=== PATIENT | female | born 1940 | race Caucasian/White ===

== ENCOUNTER → 2019-07-29 09:03 | Outpatient (BNVA) | payer MEDICARE, SELFPAY | PROVIDERS: Visit Provider Nurse Practitioner | DX: I25.10 Atherosclerotic heart disease of native coronary artery without angina pectoris (principal) | CPT/HCPCS: 80053; 80061; 81000 ==

== ENCOUNTER → 2019-12-21 09:19 | Outpatient (BNVA) | payer MEDICARE, SELFPAY | PROVIDERS: Visit Provider Nurse Practitioner Family | DX: J44.9 Chronic obstructive pulmonary disease, unspecified (principal); I10 Essential (primary) hypertension; I25.118 Atherosclerotic heart disease of native coronary artery with other forms of angina pectoris; I73.9 Peripheral vascular disease, unspecified; M79.2 Neuralgia and neuritis, unspecified; Z86.73 Personal history of transient ischemic attack (TIA), and cerebral infarction without residual deficits; H11.31 Conjunctival hemorrhage, right eye; I45.10 Unspecified right bundle-branch block; R07.9 Chest pain, unspecified; R73.9 Hyperglycemia, unspecified | CPT/HCPCS: 80053; 80061; 82550; 83036; 84443; 84484; 85025 ==

== ENCOUNTER → 2020-01-10 11:29 | Outpatient (BNVA) | payer MEDICARE, SELFPAY | PROVIDERS: Visit Provider Nurse Practitioner Family | DX: R07.9 Chest pain, unspecified (principal) | CPT/HCPCS: 80053; 84484; 85025 ==

== ENCOUNTER 2020-03-01 10:48 | Outpatient (CLI) | payer MEDICARE, SELFPAY ==
--- NOTE | 2020-03-01 11:00 | USCV_ITS ---
Cal Tolbert Age: 79 Gender: M : 1940 Exam Date: 03/01/2020 10:52 Ordering Phys: Jono Palmer MD ([email or web address]) Technologist: Jasmin Gutierrez [place] [facility] [place]ication: CHEST PAIN BP: 159 / 68 HR: 62 Rhythm: Sinus Technical Quality: Poor secondary to COPD MEASUREMENTS (Male / Female) Normal Values 2D ECHO LV Diastolic Diameter PLAX 4.3 cm 4.2 - 5.9 / 3.9 - 5.3 cm LV Systolic Diameter PLAX 3.5 cm LV Chamber Size 4.2 cm IVS Diastolic Thickness 1.5 cm 0.6 - 1.0 / 0.6 - 0.9 cm IVS Systolic Thickness 1.5 cm LVPW Diastolic Thickness 1.4 cm 0.6 - 1.0 / 0.6 - 0.9 cm LVPW Systolic Thickness 1.4 cm RV Chamber Size 2.7 cm LVOT Diameter 2.1 cm LV Ejection Fraction 2D Teich 38.4 % LV Ejection Fraction MOD 2C 56.1 % LV Ejection Fraction 2C AL 59.3 % LA Diameter 2.9 cm LA Width 2.9 cm LA Height 4.5 cm RA Width 3.2 cm RA Height 2.2 cm Aorta at Sinotubular Diameter 3.0 cm M-MODE LV Diastolic Diameter MM 5.3 cm 4.2 - 5.9 / 3.9 - 5.3 cm LV Systolic Diameter MM 3.1 cm LV Ejection Fraction MM Teich 71.5 % IVS Diastolic Thickness MM 1.5 cm 0.6 - 1.0 / 0.6 - 0.9 cm IVS Systolic Thickness MM 1.8 cm LVPW Diastolic Thickness MM 1.3 cm 0.6 - 1.0 / 0.6 - 0.9 cm LVPW Systolic Thickness MM 1.8 cm RV Diastolic Diameter MM 1.1 cm Aortic Annulus Diameter 3.3 cm LA Ao Ratio MM 1.1 MV E Point Septal Separation 1.5 cm DOPPLER AV Peak Velocity 134.0 cm/s LVOT Peak Velocity 93.0 cm/s AV Area Cont Eq vti 2.1 cm squared AV Area Cont Eq pk 2.3 cm squared MV Area PHT 2.0 cm squared Mitral E to A Ratio 0.7 MV E' Velocity 39.0 cm/s Mitral E to MV E' Ratio 11.6 Mitral E to LV E' Lateral Ratio 12.6 Mitral E to LV E' Septal Ratio 10.7 TR Peak Velocity 124.8 cm/s TR Peak Gradient 6.2 mmHg TR Mean Velocity 92.1 cm/s TR Mean Gradient 3.7 mmHg TR Velocity Time Integral 28.0 cm TV Peak E Velocity 25.0 cm/s Right Atrial Pressure 3.0 mmHg Pulmonary Artery Systolic Pressu 9.2 mmHg PV Peak Velocity 76.0 cm/s RV Acceleration Time 0.1 s RV Ejection Time 0.3 s RV AcT/ET 0.4 FINDINGS Left Ventricle Normal left ventricular size and systolic function, EF 65 %. Mild concentric left to the hypertrophy . Grade I/IV diastolic dysfunction (abnormal relaxation filling pattern), normal to mildly elevated filling pressures. Mild hypokinesia of the basal inferior cazares Right Ventricle Normal right ventricular size and systolic function. Right Atrium Normal right atrial size. Left Atrium Mildly increased left atrial size. Mitral Valve Thickened mitral valve. Moderate mitral annular calcification Aortic Valve Thickened aortic valve. Tricuspid Valve Tricuspid valve morphology could not be delineated well Pulmonic Valve Pulmonic valve not well visualized. Pericardium No pericardial effusion. Aorta Normal aortic annulus size. CONCLUSIONS Normal left ventricular size and systolic function, EF 65 %. Mild concentric left to the hypertrophy . Grade I/IV diastolic dysfunction (abnormal relaxation filling pattern), normal to mildly elevated filling pressures. Wall motion abnormality as mentioned above Thickened mitral valve. Moderate mitral annular calcification. Mildly increased left atrial size. Minimally thickened aortic valve No pericardial effusion. No previous study is available for comparison. Dr Jono Palmer MD [facility] (Electronically Signed) Final Date: 01 March 2020 16:39 S
== END 2020-03-01 10:49 | disposition home or self-care (01) ==
LOC: RAD 10:54
PROVIDERS: Visit Provider Internal Medicine Cardiovascular Disease
DX: R07.9 Chest pain, unspecified (principal); I08.0 Rheumatic disorders of both mitral and aortic valves
CPT/HCPCS: 93306

== ENCOUNTER 2020-03-10 08:22 | Outpatient (CLI) | payer MEDICARE, SELFPAY ==
--- NOTE | 2020-03-10 08:45 | USCV_ITS ---
Cal Tolbert Age: 79 Gender: M : 1940 Exam Date: 03/10/2020 09:01 Ordering Phys: Jono Palmer MD ([email or web address]) Technologist: Jasmin Gutierrez Exam Location: [facility] – [place] Indication: HISTORY OF BILAT GRAFTING Risk Factors: Smoker Previous Vascular Surgery: BILATERAL GRAFTS RIGHT LEFT BP: 150.0 / BP: 157.0/ 0 0 Waveform Velocity (cm/s) Velocity (cm/s) Waveform Biphasic 116.2 Iliac Prox Biphasic Iliac Mid 157.1 Biphasic 159.0 Iliac Distal Biphasic 136.3 SOCIAL SERVICE LIAISON Biphasic 92.6 SFA Prox 77.7 Biphasic Biphasic 114.7 SFA Mid 264.1 Biphasic Biphasic SFA Dist Biphasic 165.5 116.8 Biphasic 102.5 POP 95.7 Biphasic Biphasic 56.2 MANAGER BANQUET 74.6 Biphasic Monophasic 48.5 DPA 129.0 Biphasic 0.9 CHELSEY 0.9 FINDINGS RT MANAGER BANQUET 125 RT DPA 145 LT MANAGER BANQUET 145 LT DPA 120 Mild to moderate diffuse plaques in the right iliac and femoral artery. 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
--- NOTE | 2020-03-10 09:30 | USCV_ITS ---
Cal Tolbert Age: 79 Gender: M : 1940 Exam Date: 03/10/2020 08:35 Ordering Phys: Jono Palmer MD ([email or web address]) Technologist: Jasmin Gutierrez Exam Location: [facility] – [place] Indication: HISTORY OF CVA Risk Factors: SMOKER Previous Vascular Surgery: NONE PER PT Right Brachial BP: 150 / 64 Left Brachial BP: 157 / 70 Right Left Velocity (cm/s) Spectral Plaque Velocity (cm/s) Spectral Plaque Syst/Diast Broadening Syst/Diast Broadening 79.50/ 11.70 Prox CCA 74.90 / 21.80 49.80/ 10.70 Hetro Mid CCA 87.50 / 18.10 Homo 58.20/ 16.20 Distal CCA 97.20 / 16.70 Homo 166.20/13.20 Hetro Prox ICA 119.50/ 27.80 Hetro 76.80/ 18.60 Hetro Mid ICA 233.60/ 39.30 72.80/ 18.60 Distal ICA 207.40/ 54.60 69.50 Hetro ECA 132.00 Hetro 3.34 ICA/CCA 2.67 Antegrade Vertebral Antegrade 50.20/ 13.90 cm/s 22.90/ 10.00 cm/s Tri Subclavian Bi 116.0 190.6 0 0 FINDINGS Moderate to heavy heterogeneous plaques at the left bifurcation and internal carotid artery. Moderate to heavy heterogeneous plaques at the right bifurcation and proximal internal carotid artery Antegrade flow in the vertebral arteries bilaterally Normal Doppler flow velocities in the external carotid arteries bilaterally Intimal thickening and minimal plaques in the common carotid arteries bilaterally CONCLUSIONS Moderate to heavy heterogeneous plaques at the left bifurcation and internal carotid arterywith velocity elevation consistent with 50-79% stenosis. Moderate to heavy heterogeneous plaques at the right bifurcation and proximal internal carotid arterywith velocity elevation consistent with 50-79% stenosis. Intimal thickening and minimal plaques in the common carotid arteries bilaterally Consider CTA, to better evaluate the distal ICA and intracranial artery on the left side. No similar previous studies are available for comparison Dr Jono Palmer MD [facility] (Electronically Signed) Final Date: 11 March 2020 18:08 S
== END 2020-03-10 08:23 | disposition home or self-care (01) ==
LOC: RAD 08:27
PROVIDERS: Visit Provider Internal Medicine Cardiovascular Disease
DX: I73.9 Peripheral vascular disease, unspecified (principal); Z86.73 Personal history of transient ischemic attack (TIA), and cerebral infarction without residual deficits; I65.23 Occlusion and stenosis of bilateral carotid arteries
CPT/HCPCS: 93880; 93925

== ENCOUNTER 2020-03-30 10:01 | Outpatient (CLI) | payer MEDICARE, SELFPAY ==
--- NOTE | 2020-03-30 10:30 | CT_ITS ---
WS: [id number] CT scan of the arteries of the neck. Additional two-dimensional coronal and sagittal reconstruction w as performed. MIP images were also performed. 03/30/2020 Clinical Data: I65.21 - Occlusion and stenosis of right carotid artery Comparison: Bilateral carotid Doppler ultrasound, 03/10/2020. DLP: 968.[address] scans at [facility] use at least one of these dose optimization techniques: automat ed exposure control; mA and/or kV adjustment per patient size (includes targeted exams where dose is matched to clinical indication); or iterative reconstruction. Findings: There is calcification at the origins of both internal carotid arteries. The stenosis of the origin o f the right internal carotid artery is measured at 99%. The stenosis of the origin of the left regulatory affairs internship al carotid artery is 49%. The vertebral arteries are normal and equal in size. The intracranial circulation appears to be mary kate l. No aneurysms of the [place] can be seen. There are no occlusions or stenoses. There is calcification in the wall of the arch of the aorta. There are small cystic changes in the torrey ngs. There is a prominent density measuring 2.60 cm in the left apex. No lymphadenopathy is seen. The thyroid gland shows normal enhancement. Midline sternotomy sutures are present. The salivary glands are unremarkable. The larynx is symmetric. The oral cavity and parapharyngeal are as are unremarkable. The skull base shows no fractures or erosions. The mastoid air cells, internal a uditory canals, sella turcica, paranasal sinuses and intraorbital contents show only bilateral catar act replacements. There is moderate degenerative change of the cervical spine with multilevel degener ative disc disease. CT/CT angio neck 95792 Impression: 1. 99% stenosis of the right internal carotid artery. 2. 49% stenosis in the origin of the left internal carotid artery. 3. Chronic lung disease and prominent lesion in the left lung apex. Recommend C T chest.
[2020-03-30 11:22] LABS: Blood Urea Nitrogen 20 mg/dL (8-23)
[2020-03-30] MEDS: iodixanol 320 mg/mL 100mL Btl IV (11:34)
== END 2020-03-30 10:02 | disposition home or self-care (01) ==
LOC: RADWPI 10:05
PROVIDERS: PCP Nurse Practitioner Family; Visit Provider Internal Medicine Cardiovascular Disease
DX: I65.23 Occlusion and stenosis of bilateral carotid arteries (principal); J98.4 Other disorders of lung
CPT/HCPCS: 70498; 82565; 84520; Q9967

== ENCOUNTER → 2020-04-03 10:12 | Outpatient (BNVA) | payer MEDICARE, SELFPAY | PROVIDERS: PCP Nurse Practitioner Family; Visit Provider Nurse Practitioner Family | DX: I10 Essential (primary) hypertension (principal); I25.118 Atherosclerotic heart disease of native coronary artery with other forms of angina pectoris; J44.9 Chronic obstructive pulmonary disease, unspecified; I73.9 Peripheral vascular disease, unspecified; M79.2 Neuralgia and neuritis, unspecified; R07.9 Chest pain, unspecified | CPT/HCPCS: 80053; 80061; 84443; 85025 ==

== ENCOUNTER 2020-04-26 09:48 | Outpatient (CLI) | payer MEDICARE, SELFPAY ==
--- NOTE | 2020-04-27 09:35 | ECG_ITS ---
[facility] Test Date: 2020-04-27 Pat Name: Cal Tolbert Department: Room: Gender: Male Statement Clerk: : 1940 Requested By: Mike Avalos Order Number: [id number] Le MD: Nick Tolbert M.D. Measurements Intervals [place] Rate: 51 P: -24 [place]: 158 QRS: 151 QRSD: 146 T: 52 QT: 462 QTc: 430 Interpretive Statements SINUS BRADYCARDIA RIGHT BUNDLE BRANCH BLOCK [120+ ms QRS DURATION, UPRIGHT V1, 40+ ms S IN I/aVL/V4/V5/V6] LEFT POSTERIOR FASCICULAR BLOCK [QRS AXIS > 109, INFERIOR Q] No previous ECG available for comparison Electronically Signed On 04-27-2020 15:09:41 SANITATION TRUCK CLEANER by Nick Tolbert M.D. [id number]
[2020-04-27 09:50] VITALS: BMI 27.5
[2020-04-27 10:26] LABS: Add Urine Microscopic? NO
[2020-04-27 10:41] LABS: Basophils # 0.1 10^3/uL (0.0-0.1); Basophils % 0.9 %; Eosinophils # 0.3 10^3/uL (0.0-0.8); Eosinophils % 3.3 %; Hematocrit 39.3 % (42.0-52.0); Hemoglobin 12.4 g/dL (11.7-16.6); Lymphocytes # 2.9 10^3/uL (0.8-4.8); Lymphocytes % 32.9 %; Mean Corpuscular HGB Conc 31.6 g/dL (30.0-36.0); Mean Corpuscular Hemoglobin 28.9 pg (28.0-34.0); Mean Corpuscular Volume 91.6 fL (80-94); Monocytes # 0.9 10^3/uL (0.2-0.9); Monocytes % 10.5 %; Neutrophils # 4.55 10^3/uL (1.8-7.7); Neutrophils % 52.3 %; Nucleated Red Blood Cells % 0 %; Platelet Count 192 10^3/cmm (130-400); Red Blood Count 4.29 10^6/uL (4.1-5.3); Red Cell Distribution Width 13.2 % (12.1-15.1); White Blood Count 8.7 10^3/uL (4.0-10.0)
--- NOTE | 2020-04-27 10:46 | P.ANESASSM_ITS ---
Pre-Anesthetic Assessment Pre-Anesthetic Assessment: Height/Weight: Height 1.83 m Weight 92.079 kg Preop Diagnosis: Right Carotid artery stenosis Proposed Procedure: Operation Date: 05/01/20 07:00 Proposed Procedures p Carotid Endarterectomy 20235 I65.23(Right) - Mike Avalos MD Was Beta Rakesh taken within 24 hours: Yes Social: Social History: Tobacco and No alcohol Comment: heavy smoker Exam: Pre-Anes Outpt Exam: alert, oriented x 3 and regular rate & rhythm Additional Exam Findings (including area of procedure): BBS decreased, rhonchi Airway: Submandibular: WNL Cervical ROM: WNL MP: 2 Dentition: False Pulmonary: Pulmonary: COPD CV/HEM: CV/HEM: Angina (Stable), CAD, HTN and PVD : : None reported Hepatic: Hepatic: None reported GI: GI: None reported Metabolic: Metabolic: DM Musc/skel: Musc/skel: None reported Neuropsych: Neuropsych: CVA and Neuropathy Anesthetic Plan: ASA status: 3 Anesthesia: General Other: A.line Risk of > 500 ml blood loss (7ml/kg in children): No PFSH Anesthesia PFSH: Medical History Atypical chest pain CAD (coronary artery disease) Carotid stenosis COPD (chronic obstructive pulmonary disease) Essential (primary) hypertension History of CVA (cerebrovascular accident) History of left inguinal hernia Neuropathic pain PVD (peripheral vascular disease) Surgical History History of cataract extraction Bilateral History of coronary artery bypass graft x 3 History of femoral angiogram left Family History Other Hypertension Denies family history of Bleeding disorder Social History Smoking and tobacco status: current every day smoker Second hand smoke exposure: Yes Smoking risk assessment/counseling performed?: Yes Alcohol intake: never Desire information about alcohol rehabilitation?: No Counseling given: No Desire information about substance/drug rehabilitation?: No Counseling given: No Adopted: No Caregiver/support person: No Lives independently: Yes Household members: friend(s) Housing: House Marital status: Single Number of children: 5 service: Yes branch: [employer] Current occupational status: retired History of recent travel: No Current gender identity: Male Data Anesthesia CBC & Chem 7: 04/26/20 09:55 04/26/20 09:38 Other Labs: Laboratory Results - last 48 hr 04/26/20 04/26/20 09:55 09:55 WBC 8.7 RBC 4.29 Hgb 12.4 Hct 39.3 L MCV 91.6 MCH 28.9 MCHC 31.6 RDW 13.2 Plt Count 192 MPV 10.0 Neut % (Auto) 52.3 Lymph % (Auto) 32.9 [place] % (Auto) 10.5 Eos % (Auto) 3.3 Baso % (Auto) 0.9 Neut # (Auto) 4.55 Lymph # (Auto) 2.9 [place] # (Auto) 0.9 Eos # (Auto) 0.3 Baso # (Auto) 0.1 Nucleated RBC % (auto) 0 Nucleated RBCs # 0.0 PT Cancelled INR Cancelled Cardiac Studies: No Data to Display
[2020-04-27 10:59] LABS: Anion Gap 12.5 (5-19); Blood Urea Nitrogen 22 mg/dL (8-23); Calcium 9.1 mg/dL (8.5-10.5); Carbon Dioxide 27 mmol/L (22-29); Chloride 104 mmol/L (98-107); Glucose 105 mg/dL (65-115); Osmolality Calculated 292 mOsm/kg (285-295); Potassium 4.5 mmol/L (3.5-5.1); Sodium 139 mmol/L (136-145)
[2020-04-27 11:19] LABS: Bilirubin Urine Neg (Negative); Blood Urine Neg (Negative); Glucose Urine UA Norm (Normal); Ketones Urine Negative (Negative); Leukocyte Esterase Urine Negative (Negative); Nitrate Urine Negative (Negative); Protein Urine Neg (Negative); Urine Appearance Clear (CLEAR); Urine Color Straw (Yellow); Urobilinogen Urine Norm (Negative); pH Urine 7 (5-7)
[2020-04-27 11:29] LABS: INR 0.95 (0.8-1.2)
--- NOTE | 2020-05-01 06:53 | SUR.PREOP ---
Received text from charge nurse Jessica Alvarado that procedure was cancelled due to no open beds in the hospital.
== END 2020-04-26 09:49 | disposition home or self-care (01) ==
LOC: OPS 12-25 15:19
PROVIDERS: PCP Nurse Practitioner Family; Visit Provider Thoracic Surgery (Cardiothoracic Vascular Surgery)
DX: Z01.818 Encounter for other preprocedural examination (principal); I65.23 Occlusion and stenosis of bilateral carotid arteries; J44.9 Chronic obstructive pulmonary disease, unspecified; Z86.73 Personal history of transient ischemic attack (TIA), and cerebral infarction without residual deficits; E11.40 Type 2 diabetes mellitus with diabetic neuropathy, unspecified; I25.10 Atherosclerotic heart disease of native coronary artery without angina pectoris; I10 Essential (primary) hypertension; Z82.49 Family history of ischemic heart disease and other diseases of the circulatory system; F17.210 Nicotine dependence, cigarettes, uncomplicated; I45.10 Unspecified right bundle-branch block
CPT/HCPCS: 80048; 81003; 85025; 85610; 86850; 86900; 86920; 93005

== ENCOUNTER 2020-04-27 06:16 | Outpatient (CLI) | payer MEDICARE, SELFPAY ==
[2020-04-27 06:20] VITALS: BMI 27.1
--- NOTE | 2020-04-27 07:04 | ECG_ITS ---
[facility] Test Date: 2020-04-27 Pat Name: Cal Tolbert Department: Room: Gender: Male Information Technology Director: : 1940 Requested By: Jono Palmer Order Number: [id number] Rey MD: Dora Zamudio M.D. Interpretive Statements NAME OF STUDY: LEXISCAN SESTAMIBI STRESS TEST INDICATION: Shortness of Breath; Chest Pain PROCEDURE: At the baseline, the blood pressure was 178/85 mm Hg with a heart rate of 72 bpm. The electrocardiogram showed sinus rhythm, normal axis and RBBB. Non specific ST-T wave changes in inferolateral leads. ??? The Lexiscan was infused over a period of 20 seconds. A total of 0.4 milligrams of Lexiscan was infused. The stress phase was continued for a total of 5 minutes. Heart rate at the end of the stress phase was 72 bpm with a blood pressure of 167/72 mm Hg and oxygen saturation 97%. The EKG at the peak infusion revealed no significant ST-T wave changes. ??? Sestamibi was injected 20 seconds after the Lexiscan infusion. ??? Blood pressure at the end of the recovery phase was 169/81 mm Hg and oxygen saturation of 96% with a heart rate of 72 beats per minute. ??? CONCLUSION: 1. No significant EKG changes with the] LexiScan infusion. 2. No LexiScan induced chest pain or cardiac arrhythmia. 3. Normal blood pressure and heart rate response. 4. Sestamibi/sestamibi perfusion scan pending; see separate report. Electronically Signed On 04-27-2020 12:44:25 SENIOR JAVA WEB DEVELOPER by Dora Zamudio M.D. [id number]
--- NOTE | 2020-04-27 07:04 | NMCV_ITS ---
NM aaron perf SPECT r/s* [id number] Cal Tolbert Age: 79 Gender: M : 1940 Exam Date: 04/27/2020 07:39 Ordering Phys: Jono Palmer MD ([email or web address]) Technologist: MASON Melgar Exam Location: [facility] Indications: CHEST PAIN STRESS TEST [facility] IMAGE PROTOCOL Rest/Stress 1 Lexiscan Day Radiopharmaceutical Dose (mCi) Administration Site Administered by Rest: Tc-99m 10.9 IV MASON Soares Sestamibi Stress:Tc-99m 32.5 IV MASON Melgar Sestamichaim Rest: 27-Apr-2020 60 Discovery 630 Stress: 27-Apr-2020 30 Discovery 630 0.4mg Lexiscan. Images obtained in supine and prone position. SPECT RESULTS Technical Quality: Excellent Raw Data Analysis: Normal Image Corrections: No attenuation or motion correction applied Summed Stress Score: 14 Summed Rest Score: 9 Summed Difference Score: 5 PERFUSION FINDINGS Medium sized perfusion abnormality of moderate severity of basal to mid inferior and basal to mid inferolateral cazares on rest and stress images . FUNCTIONAL RESULTS (calculated via Gated SPECT) Stress Image LV EF (%): 69 Stress EDV (mL):115 TID: 0.78 Stress ESV (mL):36 FUNCTIONAL FINDINGS: The left ventricle is normal in size. Transient Ischemia Dilatation of 0.78. There is normal left ventricular systolic function. The left ventricular ejection fraction is normal with a value of 69%. There is normal left ventricular wall thickening. Normal end diastolic and end systolic function. IMPRESSIONS 1. Medium sized predominantly fixed perfusion abnormality of moderate severity of basal to mid inferior and basal to mid inferolateral cazares. 2. This likely represents old myocardial infarction in right coronary artery/circumflex artery territory. 3. Overall left ventricular systolic function is normal without regional wall motion abnormalities. 4. The left ventricular ejection fraction is normal with a value of 69%. 5. No significant coronary ischemia based on this study. Dora Zamudio MD (Electronically Signed) Final Date: 27 April 2020 12:25 S
[2020-04-27] MEDS: regadenoson 0.4 Mg/5 ml Syringe IVP (08:10)
[2020-04-27 08:22] VITALS: BP 169/81; PULSE 72
== END 2020-04-27 06:17 | disposition home or self-care (01) ==
LOC: CDL 06:20
PROVIDERS: PCP Nurse Practitioner Family; Visit Provider Internal Medicine Cardiovascular Disease
DX: R06.02 Shortness of breath (principal); R07.89 Other chest pain
CPT/HCPCS: 78452; 87635; 93017; A9500; J2785

== ENCOUNTER → 2020-05-03 10:54 | Outpatient (BNVA) | payer MEDICARE, SELFPAY | PROVIDERS: PCP Nurse Practitioner Family; Visit Provider Nurse Practitioner Family | DX: I65.21 Occlusion and stenosis of right carotid artery (principal) | CPT/HCPCS: 87635 ==

== ENCOUNTER 2020-05-08 11:59 | Inpatient (IN) | payer MEDICARE, SELFPAY ==
[2020-05-08] VITALS (14 sets, daily range): BP systolic 146–183; BP diastolic 61–87; PULSE 48–79; RESP 15–27; TEMP 36.4–36.6; O2SAT 96–98; BMI 27.5
[2020-05-08] MEDS: sodium chloride 0.9% 1,000 ML 30 ML IV (09:00)
[2020-05-08 09:07] LABS: Glucose Point of Care 103 mg/dL (70-110)
--- NOTE | 2020-05-08 09:13 | W.PM.OPSUD ---
Surgery/Procedure H&P Update DATE OF PROCEDURE: May 08, 2020 DATE H&P PERFORMED: 04/07/20 H&P UPDATE INFORMATION: I have reviewed H&P completed within last 30 days, I have examined patient prior to procedure and No changes to prior documentation PREOP DIAGNOSIS: Right Carotid artery stenosis PRIMARY INDICATION FOR PROCEDURE: High-grade, 99% right internal carotid artery stenosis PLANNED PROCEDURE: Operation Date: 05/08/20 10:55 Proposed Procedures p Carotid Endarterectomy 66018 I65.23(Right) - Mike Avalos MD
--- NOTE | 2020-05-08 10:22 | ANES.PROC ---
Anesthesia Procedures Procedure/Date: 05/08/20 Arterial Line: Time Out Performed: Yes Consent: requested by attending/covering physician, risks and benefits reviewed and patient agrees to proceed Size (Gauge): 20 Technique Used: direct puncture technique (after prep with chloraprep) Post-Procedure: dry sterile dressing placed Patient Tolerated Procedure: well and no complications Complications: none Site: right
[2020-05-08] MEDS: heparin, porcine 1,000 unit/mL INJ 10 mL 10000 UNIT IRRIGATION (10:38)
[2020-05-08] MEDS: vancomycin 1,000 MG SDV 1000 MG IRRIGATION (10:38)
--- NOTE | 2020-05-08 12:37 | P.OP_ITS ---
Operative Report Date of procedure: May 08, 2020 Pre-op Diagnosis: Right Carotid artery stenosis Post-op diagnosis: same Procedure Done: Right carotid endarterectomy with patch angioplasty Specimens removed/disposition: Right carotid artery plaque Surgeon: Mike Avalos Anesthesia: General Estimated blood loss (mL): 100 Condition: stable Disposition: ICU Brief History: 79-year-old gentleman referred to our service by Dr. Palmer due to a high-grade right ICA stenosis of greater than 99% as calculated by CTA during evaluations for carotid bruits and subsequent carotid duplex study revealing high-grade lesions. No neurologic symptoms. He has a long history of tobacco use since a very young age and continues to smoke unabated. Prior history includes coronary bypass grafting x3 and peripheral vascular disease. Recommendation for carotid endarterectomy was carefully discussed. Details and risk of the procedure were reviewed. He wished to proceed with plans for surgery. Surgery had been originally scheduled for last week but had to be delayed due to ICU bed availability during the Covid pandemic. Procedure: Mr. Tolbert was placed on the OR table and underwent general endotracheal anesthesia with a neurological monitoring endotracheal tube as well as placement of a right radial arterial line. Bihemispheric monitoring pads were placed as well as grounding and sensing pads for nerve conduction evaluation during neck dissection.The entire upper chest and right neck were sterilely prepped and draped. Incision was made along the anterior border of the sternomastoid muscle and carried down to the platysma with cautery. Dissection from this point forward was carried out utilizing Metzenbaum scissors and limited use of bipolar cautery. The internal jugular vein was dissected free and the facial vein was ligated, oversewn, and divided. Dissection was continued down through the ansa cervicalis with preservation of major branches. Minor branches were divided if required to allow for adequate exposure. Nerve conduction evaluation was performed throughout the dissection for protection of the recurrent nerve. We subsequently reached the common carotid artery. Dissection was then continued proximally to distally across the bifurcation. Vessel loops were placed around the common carotid artery, internal carotid artery, and external carotid artery. Distally, the base of the hypoglossal nerve could be identified and was protected. The internal carotid artery disease went fairly high and extended above the level of the mandibular angle. This did require some traction in this region, but great care was taken to minimize pressure to the hypoglossal nerve, which was protected. Care was taken during this dissection to avoid injury to the vagus nerve. The patient was then heparinized with 10,000 units. The systolic blood pressure was elevated to 160. Following this, in a rapid sequenced fashion, the distal internal carotid artery was clamped followed by clamping of the common carotid artery and external carotid artery. #11 scalpel blade was used to open the common carotid artery proximally. Lange scissors were then utilized to extend this arteriotomy across the distal common carotid artery and ulcerated very stenotic plaque and continue this further at the bifurcation across the calcific plaque in the internal carotid artery until we had reached normal intima. The internal carotid artery clamp was briefly flashed with evidence of brisk back bleeding, therefore we elected not to shunt. It should be noted that bi- hemispheric oximetry was recorded throughout the procedure. Next, a freer elevator was utilized to create a dissection plane the plaque from intima at the proximal portion of the arteriotomy. This was then divided with a #11 scalpel blade. This plaque was then further dissected along the intimal plane proximally to distally across the bifurcation. Utilizing an everting technique, plaque was removed from the external carotid artery with brisk flow. This plaque was then dissected free up the internal carotid artery to a feathered edge. Heparinized saline solution was utilized to remove any loose debris. Next, a Hemashield patch was brought into the field and sewn into position utilizing a running 6-0 Prolene suture, thereby completing our patch angioplasty. At the completion of the patch, the external carotid artery was opened followed by the common carotid artery and finally the internal carotid artery, thereby reestablishing cerebral flow. Areas of extravasation were repaired with 6-0 Prolene suture. After 5 minutes, heparin was reversed with protamine. Hemostasis was confirmed. The wound was irrigated with antibiotic solution. A small, flat, Aj-Hamilton drain was placed in the wound and connected to bulb suction. Sponge and needle count was correct. The wound was then closed in 2 layers of 3-0 Vicryl suture. Skin was reapproximated in a subcuticular manner with 4-0 Monocryl suture. A pressure dressing was then applied. He was awakened from anesthesia and spontaneous movement of all extremities as well as movement to command was noted. He was then transferred to the ICU in stable condition. I did rehabilitation counsellor with a family friend by phone at completion of the procedure. Mr. Tolbert will be monitored in the ICU for the next 24 hours.
[2020-05-08] MEDS: lactated ringers 1,000 ML 125 ML IV ×2 (13:11→20:42)
[2020-05-08] MEDS: HYDROcodone-acetaminophen 5-325 mg Tablet 1 TAB PO ×2 (14:55→20:38)
--- NOTE | 2020-05-08 15:26 | ANE.PACU2 ---
Inpatient post-anesthesia follow up: Airway intact: Yes Vital signs: Temperature 97.8 F Pulse Rate 67 Respiratory Rate 18 Blood Pressure Pulse Oximetry 98 Oxygen Delivery Me thod Room Air Oxygen Flow Rate 2 Fraction of Inspir ed Oxygen Hydration adequate: Yes Nausea and vomiting: No Pain level: 2 Mental status: Baseline
--- NOTE | 2020-05-08 17:54 | PC.NURSE ---
ART line removed. Pressure Held for 5 minutes. No signs of bleeding or hematoma. Wrapped site with gauze and coban.
[2020-05-08] MEDS: cetylpyridinium Lozenge 1 EACH MUCOUS MEM (17:55)
[2020-05-08] MEDS: ceFAZolin 1,000 MG in sodium chloride 0.9% (plus) 50 ML 100 MG IV (18:26)
[2020-05-09] VITALS (22 sets, daily range): BP systolic 143–180; BP diastolic 59–88; PULSE 39–80; RESP 10–20; O2SAT 93–97
[2020-05-09] MEDS: morphine 4 mg/mL SDV 1 mL 2 MG IVP (00:27)
[2020-05-09] MEDS: guaiFENesin 100 mg/5 mL UDC 10 mL 200 MG PO (00:40)
[2020-05-09] MEDS: ceFAZolin 1,000 MG in sodium chloride 0.9% (plus) 50 ML 100 MG IV (03:51)
--- NOTE | 2020-05-09 04:08 | PC.NURSE ---
Foly removed per order, 10 ml withdrawn from balloon, tip intact, tolerated well
[2020-05-09] MEDS: cetylpyridinium Lozenge 1 EACH MUCOUS MEM (04:41)
[2020-05-09] MEDS: lactated ringers 1,000 ML 125 ML IV (04:42)
--- NOTE | 2020-05-09 05:37 | PC.NURSE ---
Addendum entered by Crow Crowley RN 05/09/20 05:59: Give Losartan now Original Note: at bedside, approved giving morning BP now for HTN
[2020-05-09] MEDS: losartan 50 mg Tablet 100 MG PO (05:53)
[2020-05-09] MEDS: HYDROcodone-acetaminophen 5-325 mg Tablet 1 TAB PO (05:57)
--- NOTE | 2020-05-09 06:02 | PM.PN ---
Subjective Subjective: Interval history: Postop day #1 status post right carotid endarterectomy. Uneventful night. Neurologically intact. No phonation or swallowing difficulties. Low EUNICE drain output. EUNICE drain removed. Vitals/I&O/Wt Last Vital Signs Temp 97.6 F 05/08/20 21:00 Pulse 44 L 05/09/20 04:00 Resp 10 L 05/09/20 04:00 BP 180/81 05/09/20 05:53 Pulse Ox 97 05/09/20 04:00 05/08/20 05/08/20 05/09/20 14:59 22:59 06:59 Intake Total 1760 / 1760 1469.583 / 3229.583 1000 / 4229.583 Output Total 1000 / 1000 Balance 760 / 760 1469.583 / 2229.583 1000 / 3229.583 Weight last 48 hrs Weight 203 lb Physical Exam Neck/C-Spine: COMMON NORMALS: No carotid bruits (Neck incision clean and dry. EUNICE drain removed) Resp: COMMON NORMALS: normal respiratory effort, No use of accessory muscles and clear to auscultation bilaterally EFFORT & INSPECTION: Yes able to speak in complete sentences AUSCULTATION: clear to auscultation bilaterally Cardio: COMMON NORMALS: regular rate, regular rhythm, S1 normal heart sound present and No murmurs present (Cardio) RATE: regular rate RHYTHM: regular rhythm HEART SOUNDS: S1 normal heart sound present Neuro: COMMON NORMALS: no focal motor deficits and no sensory deficits noted OTHER: Tongue is midline with protrusion. Voice quality normal. A&P Assessment and plan (1) S/P carotid endarterectomy: Postop day #1. Doing well. Neurologically intact. EUNICE drain removed. Incision clean and dry. Plan: Discharge to home. Follow-up in clinic in 1 week. Status: Acute Attestations Medical Necessity Statement*: Status post right carotid endarterectomy Time Spent in Patient Care: 16 - 35 minutes Procedures Arterial Line Size (Gauge): 20 Coding Level of Care Code Acute Crystal Grinder for Chg Fwd Diagnoses S/P carotid endarterectomy Z98.890
--- NOTE | 2020-05-09 06:08 | P.DS_ITS ---
Discharge Providers Date of Admission: 05/08/20 11:59 Date of Discharge: May 09, 2020 Attending Provider at Admission: Mike Avalos MD Attending Provider at Discharge: Mike Avalos MD Primary Care Provider: TREVON Bob Diagnoses at Discharge Discharge Diagnosis (1) S/P carotid endarterectomy: Status: Acute Reason for Visit Reason for Visit: carotid endarterectomy Hospital Course Hospital Course Mr. Tolbert 79-year-old gentleman with a very long history of tobacco use and prior cardiac surgery who is been followed by Dr. Palmer. Evaluations included carotid duplex revealing high velocities and subsequent CTA revealing a high- grade right ICA stenosis. He was evaluated in my clinic as an outpatient and electively admitted for planned endarterectomy. Right carotid endarterectomy was performed yesterday. Postoperatively he has been neurologically intact. He has been convalescing in the ICU with stable vital signs. No swallowing or voice quality concerns. Low EUNICE drain output. EUNICE drain was discontinued this morning. Incision clean and dry. He will be discharged home today in stable condition. He will follow-up in our clinic in 1 week. Physical Exam Neck/C-Spine: COMMON NORMALS: full ROM and No carotid bruits OTHER: Right neck incision clean and dry. Resp: COMMON NORMALS: normal respiratory effort, No use of accessory muscles and clear to auscultation bilaterally AUSCULTATION: clear to auscultation bilaterally Cardio: COMMON NORMALS: regular rate, regular rhythm, S1 normal heart sound present and No murmurs present (Cardio) RATE: regular rate RHYTHM: regular rhythm Extremity: COMMON NORMALS: no clubbing, cyanosis or edema Neuro: COMMON NORMALS: no focal motor deficits and no sensory deficits noted Discharge Data Data Completed and Pending: Pending at discharge Category Date Time Status PRBC [Leukocyte R educed RBC] Routin e Lab 05/08/20 08:57 Results Type and Screen R outine Lab 05/08/20 08:57 Results Pathology: Surgic al [PTH] Routine Pth 05/08/20 11:49 Ordered Labs from last 24 hours 05/08/20 05/08/20 09:01 08:57 POC Glucose 103 Blood Type A Positive Rho(D) Type Positive Antibody Screen Negative Crossmatch See Detail Vitals: Last Vital Signs Temp 97.6 F 05/08/20 21:00 Pulse 56 L 05/09/20 06:00 Resp 15 05/09/20 06:00 BP 180/81 05/09/20 06:00 Pulse Ox 97 05/09/20 06:00 Discharge Plan Discharge Patient Disposition: Home Condition: Stable Prescriptions: New hydrocodone-acetaminophen 5-325 mg tablet 1 tab PO Q6H PRN (Reason: pain) Qty: 14 RF: 0 Continued carvedilol 12.5 mg tablet 12.5 mg PO BID 30 Days Qty: 60 RF: 5 isosorbide mononitrate 60 mg tablet extended release 24 hr 60 mg PO DAILY 30 Days Qty: 30 RF: 3 aspirin [Adult Low Dose Aspirin] 81 mg tablet,delayed release (DR/EC) 81 mg PO DAILY RF: 0 simvastatin [Zocor] 40 mg tablet 40 mg PO DAILY Qty: 90 RF: 1 olmesartan [Benicar] 40 mg tablet 40 mg PO DAILY Qty: 90 RF: 1 nitroglycerin 0.4 mg tablet, sublingual 0.4 mg SUBLINGUAL Q5M PRN (Reason: chest pain) Qty: 25 RF: 1 clopidogrel [Plavix] 75 mg tablet 75 mg PO DAILY Qty: 90 RF: 1 budesonide-formoterol [Symbicort] 160-4.5 mcg/actuation HFA aerosol inhaler 2 puff INHALATION BID 90 Days Qty: 3 RF: 1 Discharge Orders: Discharge Order (Routine); Ordered 05/09/20 Ordered By: Mike Avalos Referrals: Mike Avalos MD [Physician] - 1 week Discharge Diet: Usual diet Discharge Activity: Limit activity as instructed Activity Restrictions/Additional Instructions: No heavy lifting x1 week May remove bandage later today or tomorrow. May shower daily beginning tomorrow Report any redness, swelling, or drainage from incision Report any visual problems, swallowing difficulties, voice quality changes, or weakness Resume all home medications Discharge Attestations Time Spent in Discharge Care*: less than 30 min Specific Discharge Activities: educating patient, discussing with marito granados/social workers/dc planners, documenting/other paperwork and evaluating patient/reviewing data Time Spent in Smoking Cessation: 3 to 10 minutes Status at Discharge: Cognitive status at discharge: cognitively intact , Behavioral status at discharge: cooperative , Functional status at discharge: independent ambulation Overall status at discharge: patient is progressing back to baseline Quality Metrics Clinical Quality Measures During this hospital stay, did patient experience: None Coding Level of Care Code Acute Elevator Troubleshooter for Chg Fwd Diagnoses S/P carotid endarterectomy Z98.890
[2020-05-09] MEDS: atorvastatin 40 mg Tablet 20 MG PO (08:34)
[2020-05-09] MEDS: isosorbide mononitrate ER 60 mg Tablet PO (08:34)
[2020-05-09] MEDS: pantoprazole DR 40 mg Tablet PO (08:34)
[2020-05-09] MEDS: aspirin 81 mg EC Tablet PO (08:34)
--- NOTE | 2020-05-09 11:54 | PC.NURSE ---
all discharge instructions gone over with pt. questions answered. Scripts sent to [facility]. Taken to personal vehicle via wheel chair.
== END 2020-05-09 11:56 | disposition home or self-care (01) | DRG 39 ==
LOC: ICU 12:00
PROVIDERS: Admitting Provider Thoracic Surgery (Cardiothoracic Vascular Surgery); PCP Nurse Practitioner Family; Visit Provider Thoracic Surgery (Cardiothoracic Vascular Surgery)
PROC: 03CK0ZZ Extirpation of Matter from Right Internal Carotid Artery, Open Approach (ICD-10-PCS; CPT 35301; principal; 2020-05-08 10:45)
DX: I65.21 Occlusion and stenosis of right carotid artery (principal); F17.210 Nicotine dependence, cigarettes, uncomplicated; I25.10 Atherosclerotic heart disease of native coronary artery without angina pectoris; Z95.1 Presence of aortocoronary bypass graft; J44.9 Chronic obstructive pulmonary disease, unspecified; I10 Essential (primary) hypertension; Z86.73 Personal history of transient ischemic attack (TIA), and cerebral infarction without residual deficits; I73.9 Peripheral vascular disease, unspecified; G62.9 Polyneuropathy, unspecified; Z79.82 Long term (current) use of aspirin; Z79.02 Long term (current) use of antithrombotics/antiplatelets
CPT/HCPCS: 12345; 36415; 36416; 51702; 82962; 86850; 86900; 86920; 88304; 94640; J0360; J0690; J1100; J1644; J2270; J2370; J2405; J2704; J2720; J3010; J3370; J3490; J7030

== ENCOUNTER 2020-05-10 02:18 | Emergency (ER) | payer MEDICARE, SELFPAY ==
[2020-05-10] VITALS (7 sets, daily range): BP systolic 154–199; BP diastolic 72–103; PULSE 66–90; RESP 16–26; TEMP 36.8; O2SAT 90–95; BMI 27.5
--- NOTE | 2020-05-10 02:25 | ECG_ITS ---
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 Measurements Intervals [place] Rate: 81 P: 60 SC: 180 QRS: 110 QRSD: 149 T: 45 QT: 394 QTc: 460 Interpretive Statements SINUS RHYTHM RIGHT BUNDLE BRANCH BLOCK [120+ ms QRS DURATION, UPRIGHT V1, 40+ ms S IN I/aVL/V4/V5/V6] LEFT POSTERIOR FASCICULAR BLOCK [QRS AXIS > 109, INFERIOR Q] Compared to ECG 04/27/2020 10:34:33 Sinus bradycardia no longer present Electronically Signed On 05-10-2020 19:19:56 DONOR SERVICES TEAM LEADER by Dora Zamudio M.D. [email or web address] - [employer] Tracking/store/NU/[id number]/[email or web address]/[id number].pd berenice
--- NOTE | 2020-05-10 02:25 | XR_ITS ---
WS: [id number] Portable AP upright chest, 05/10/2020 Clinical Data: cp Comparison: None. Findings: No nodules, masses or effusions are seen. The heart is normal. The pulmonary vascularity is not increased. No pneumonia or pneumothorax is seen. The aortic arch and descending aorta show calci fication and tortuosity. There are midline sternotomy sutures and numerous mediastinal clips present. The diaphragms are flattened. XR/XR chest 1V portable [id number] Impression: Atherosclerosis and hyperinflation.
--- NOTE | 2020-05-10 02:26 | ED_ITS ---
HPI - Chest Pain General: Chief Complaint: Chest Pain Stated Complaint: CP Time Seen by Provider: 05/10/20 02:19 Source: patient and EMS Mode of arrival: EMS Limitations: no limitations History of Present Illness: HPI narrative: 79-year-old male recently had a carotid enterectomy and left the hospital yesterday. States tonight he has been having high blood pressure around 200 systolic. He states he is having some chest pain with high blood pressure. He states it is a sharp pain. He denies any vomiting or diarrhea. Denies any shortness of breath. He denies any pain in his carotid endarterectomy site. Associated symptoms: Deny abdominal pain, dyspnea, fever(s), nausea or vomiting Review of Systems Const: Denies: fever(s), chills, body aches or change in appetite Eyes: Denies: blurry vision or eye discomfort ENMT: Denies: throat pain or dental pain Card: Reports: chest pain Resp: Denies: dyspnea GI: Denies: abdominal pain, nausea, vomiting or diarrhea : Denies: dysuria Musc: Denies: neck pain or back pain Skin/Breast: Denies: rash Neuro: Denies: headache(s) Psych: Denies: depression David/Lymph: Denies: easy bruising All/Imm: Denies: urticaria PFSH ED PFSH: Medical History (Updated 05/10/20 @ 04:58 by Cheli Osman MD) Atypical chest pain CAD (coronary artery disease) Carotid stenosis COPD (chronic obstructive pulmonary disease) Essential (primary) hypertension History of CVA (cerebrovascular accident) History of left inguinal hernia Neuropathic pain PVD (peripheral vascular disease) Surgical History (Updated 05/09/20 @ 06:03 by Mike Avalos MD) History of cataract extraction Bilateral History of coronary artery bypass graft x 3 History of femoral angiogram left Family History Other Hypertension Denies family history of Bleeding disorder Social History Smoking and tobacco status: current every day smoker Second hand smoke exposure: Yes Smoking risk assessment/counseling performed?: Yes Alcohol intake: never Desire information about alcohol rehabilitation?: No Counseling given: No Desire information about substance/drug rehabilitation?: No Counseling given: No Adopted: No Caregiver/support person: No Lives independently: Yes Household members: friend(s) Housing: House Marital status: Single Number of children: 5 service: Yes branch: [employer] Current occupational status: retired History of recent travel: No Current gender identity: Male Physical Exam Const: COMMON NORMALS: no acute distress, patient oriented x3 and healthy appearing HENMT: COMMON NORMALS: normocephalic and atraumatic HEAD & SCALP: normocephalic and atraumatic Eye: COMMON NORMALS: Equal, round and reactive pupils present and EOMs intact bilaterally PUPIL: Yes Equal, round and reactive pupils present Neck/C-Spine: COMMON NORMALS: full ROM and supple Chest: COMMONS NORMALS: normal inspection of the chest and normal palpation of entire chest wall Resp: COMMON NORMALS: normal respiratory effort, No retractions and No use of accessory muscles AUSCULTATION: wheezes Cardio: COMMON NORMALS: regular rate, regular rhythm and No murmurs present (Cardio) RATE: regular rate RHYTHM: regular rhythm GI: COMMON NORMALS: Normal to inspection, nondistended, normoactive bowel sounds present, Soft to palpation, non-tender and no masses PALPATION: Yes Soft to palpation Extremity: COMMON NORMALS: normal to inspection and full ROM Neuro: COMMON NORMALS: patient oriented x3, moves all extremities and no focal motor deficits Psych: COMMON NORMALS: mental status grossly normal, Normal thought process present and cooperative THOUGHT PROCESS: Normal thought process present Skin: COMMON NORMALS: no rashes or lesions noted and no wounds GENERAL SKIN EXAM: no rashes or lesions noted Course Vital Signs: Vital signs: Vital Signs Temperature 98.2 F 05/10/20 02:22 Pulse Rate 79 05/10/20 05:12 Respiratory Rate 16 05/10/20 05:12 Blood Pressure 162/77 05/10/20 05:12 Pulse Oximetry 93 05/10/20 05:12 MDM - Chest Pain MDM Narrative: Medical decision making narrative: Patient presents with chest pain along with hypertension. His pain is atypical in nature I do not believe it is coronary nature. His initial repeat troponins were negative. He has had a recent stress test as well. He has no signs of pulmonary embolism. He has no signs of pneumonia. He feels much improved after pain meds and a breathing treatment. He is to follow-up with his carotid enterectomy as scheduled and return if worsening. He understands and agrees to the plan. Lab Data: Labs: Lab Results 05/10/20 05/10/20 05/10/20 Range/Units 02:30 02:30 02:30 WBC 16.2 H (4.0-10.0) 10^3/ uL RBC 4.00 L (4.1-5.3) 10^6/u L Hgb 11.5 L (11.7-16.6) g/dL Hct 37.1 L (42.0-52.0) % MCV 92.8 (80-94) fL MCH 28.8 (28.0-34.0) pg MCHC 31.0 (30.0-36.0) g/dL RDW 13.5 (12.1-15.1) % Plt Count 180 (130-400) 10^3/c mm MPV 10.0 (7.4-10.4) fL Neut % (Auto) 69.0 % Lymph % (Auto) 19.6 % Waldo % (Auto) 10.3 % Eos % (Auto) 0.6 % Baso % (Auto) 0.2 % Neut # (Auto) 11.17 H (1.8-7.7) 10^3/u L Lymph # (Auto) 3.2 (0.8-4.8) 10^3/u L Waldo # (Auto) 1.7 H (0.2-0.9) 10^3/u L Eos # (Auto) 0.1 (0.0-0.8) 10^3/u L Baso # (Auto) 0.0 (0.0-0.1) 10^3/u L Nucleated RBC % (a uto) 0 % Nucleated RBCs # 0.0 /100WBC PT 13.50 (12.1-14.9) SECO NDS INR 1.00 (0.8-1.2) Sodium 140 (136-145) mmol/L Potassium 4.5 (3.5-5.1) mmol/L Chloride 106 (98-107) mmol/L Carbon Dioxide 24 (22-29) mmol/L Anion Gap 14.5 (5-19) BUN 21 (8-23) mg/dL Creatinine 1.2 (0.7-1.2) mg/dL GFR Calculation Not Reportable Glucose 133 H (65-115) mg/dL Calculated Osmolal ity 295 (285-295) mOsm/k g Calcium 9.0 (8.5-10.5) mg/dL Total Bilirubin 0.2 (0.15-1.2) mg/dL AST 20 (0-40) U/L ALT 11 (0-41) U/L Alkaline Phosphata se 73 (40-130) IU/L Troponin T Baselin e (0-15) ng/L Troponin T 120 Min venetie (0-15) ng/L Delta Troponin T (0-10) ABS# Total Protein 6.1 L (6.6-8.7) g/dL Albumin 3.9 (3.5-5.2) g/dL Globulin 2.2 (1.3-4.6) g/dL 05/10/20 05/10/20 Range/Units 02:30 04:35 WBC (4.0-10.0) 10^3/ uL RBC (4.1-5.3) 10^6/u L Hgb (11.7-16.6) g/dL Hct (42.0-52.0) % MCV (80-94) fL MCH (28.0-34.0) pg MCHC (30.0-36.0) g/dL RDW (12.1-15.1) % Plt Count (130-400) 10^3/c mm MPV (7.4-10.4) fL Neut % (Auto) % Lymph % (Auto) % Waldo % (Auto) % Eos % (Auto) % Baso % (Auto) % Neut # (Auto) (1.8-7.7) 10^3/u L Lymph # (Auto) (0.8-4.8) 10^3/u L Waldo # (Auto) (0.2-0.9) 10^3/u L Eos # (Auto) (0.0-0.8) 10^3/u L Baso # (Auto) (0.0-0.1) 10^3/u L Nucleated RBC % (a uto) % Nucleated RBCs # /100WBC PT (12.1-14.9) SECO NDS INR (0.8-1.2) Sodium (136-145) mmol/L Potassium (3.5-5.1) mmol/L Chloride (98-107) mmol/L Carbon Dioxide (22-29) mmol/L Anion Gap (5-19) BUN (8-23) mg/dL Creatinine (0.7-1.2) mg/dL GFR Calculation Glucose (65-115) mg/dL Calculated Osmolal ity (285-295) mOsm/k g Calcium (8.5-10.5) mg/dL Total Bilirubin (0.15-1.2) mg/dL AST (0-40) U/L ALT (0-41) U/L Alkaline Phosphata se (40-130) IU/L Troponin T Baselin e 9 (0-15) ng/L Troponin T 120 Min venetie 16.72 H (0-15) ng/L Delta Troponin T 7.72 (0-10) ABS# Total Protein (6.6-8.7) g/dL Albumin (3.5-5.2) g/dL Globulin (1.3-4.6) g/dL EKG Data^: EKG 1: Attestation: I personally reviewed and interpreted this EKG as follows: EKG interpretation date: 05/10/20 EKG interpretation time: 02:22 Interpretation: nsr hr [address] or t wave abnormalities qrs 149 qtc 432 Discharge Plan Discharge Patient Disposition: Home Clinical Impression: Chest pain Qualifiers: Chest pain type: unspecified Qualified Code(s): R07.9 - Chest pain, unspecified Hypertension Qualifiers: Hypertension type: unspecified Qualified Code(s): I10 - Essential (primary) hypertension Condition: Stable Prescriptions: Changed carvedilol 12.5 mg tablet 25 mg PO BID 30 Days Qty: 60 RF: 5 No Action isosorbide mononitrate 60 mg tablet extended release 24 hr 60 mg PO DAILY 30 Days Qty: 30 RF: 3 aspirin [Adult Low Dose Aspirin] 81 mg tablet,delayed release (DR/EC) 81 mg PO DAILY RF: 0 simvastatin [Zocor] 40 mg tablet 40 mg PO DAILY Qty: 90 RF: 1 olmesartan [Benicar] 40 mg tablet 40 mg PO DAILY Qty: 90 RF: 1 nitroglycerin 0.4 mg tablet, sublingual 0.4 mg SUBLINGUAL Q5M PRN (Reason: chest pain) Qty: 25 RF: 1 clopidogrel [Plavix] 75 mg tablet 75 mg PO DAILY Qty: 90 RF: 1 budesonide-formoterol [Symbicort] 160-4.5 mcg/actuation HFA aerosol inhaler 2 puff INHALATION BID 90 Days Qty: 3 RF: 1 hydrocodone-acetaminophen 5-325 mg tablet 1 tab PO Q6H PRN (Reason: pain) Qty: 14 RF: 0 Discharge Orders: Discharge ED (Routine); Ordered 05/10/20 Ordered By: Cheli Osman Referrals: Lisseth Garcia FNP-C [Primary Care Provider] - Discharge Diet: Advance as tolerated Discharge Activity: Resume usual activity Patient Instructions: Chest Pain (ED), Hypertension (ED) Coding Level of Care Code ED Assembler Rubber Footwear for Lisbethg Fwd Exam Comprehensive
[2020-05-10] MEDS: ondansetron 2 mg/ML SDV 2 mL 4 MG IVP (02:31)
[2020-05-10] MEDS: morphine 4 mg/mL SDV 1 mL IVP (02:32)
[2020-05-10] MEDS: labetalol 5 mg/mL SDV 20mL 10 MG IVP (02:33)
[2020-05-10 02:41] LABS: Basophils % 0.2 %; Eosinophils # 0.1 10^3/uL (0.0-0.8); Eosinophils % 0.6 %; Hematocrit 37.1 % (42.0-52.0); Hemoglobin 11.5 g/dL (11.7-16.6); Lymphocytes # 3.2 10^3/uL (0.8-4.8); Lymphocytes % 19.6 %; Mean Corpuscular Hemoglobin 28.8 pg (28.0-34.0); Mean Corpuscular Volume 92.8 fL (80-94); Monocytes # 1.7 10^3/uL (0.2-0.9); Monocytes % 10.3 %; Neutrophils # 11.17 10^3/uL (1.8-7.7); Nucleated Red Blood Cells % 0 %; Platelet Count 180 10^3/cmm (130-400); Red Cell Distribution Width 13.5 % (12.1-15.1); White Blood Count 16.2 10^3/uL (4.0-10.0)
[2020-05-10 02:55] LABS: Alanine Aminotransferase 11 U/L (0-41); Albumin Level 3.9 g/dL (3.5-5.2); Alkaline Phosphatase 73 IU/L (40-130); Aspartate Amino Transferase 20 U/L (0-40); Blood Urea Nitrogen 21 mg/dL (8-23); Carbon Dioxide 24 mmol/L (22-29); Chloride 106 mmol/L (98-107); Globulin 2.2 g/dL (1.3-4.6); Glucose 133 mg/dL (65-115); Osmolality Calculated 295 mOsm/kg (285-295); Sodium 140 mmol/L (136-145); Total Bilirubin 0.2 mg/dL (0.15-1.2); Total Protein 6.1 g/dL (6.6-8.7)
[2020-05-10 02:57] LABS: Troponin(5th) Baseline 9 ng/L (0-15)
[2020-05-10 03:06] LABS: Anion Gap 14.5 (5-19); Potassium 4.5 mmol/L (3.5-5.1)
[2020-05-10] MEDS: ipratropium-albuterol 3 mL Neb INHALATION (03:06)
[2020-05-10 04:51] LABS: Troponin 5 2HR 16.72 ng/L (0-15); Troponin 5 2HR Delta 7.72 ABS# (0-10)
--- NOTE | 2020-05-10 12:42 | PC.RESP ---
Smoking Cessation and Pulmonary Rehab information sent to patient.
--- NOTE | 2020-05-10 18:02 | PM.HP ---
Providers/Chief Complaint Admitting Physician: Bailey Primary Care Provider: TREVON Bob Chief Complaint: Right ICA stenosis History of Present Illness Cal Tolbert is a 79 year old male referred to our service by Dr. Palmer for surgical opinion concerning a high-grade calcific proximal right ICA stenosis 99% with noncritical disease of the left ICA at the bifurcation. He has no localizing signs or neurologic symptoms. No amaurosis. No history for TIA. He has history of coronary artery disease status post CABG x3 has been followed by Dr. Plamer. He has a long history tobacco use and continues to smoke at least a pack a day. Initial evaluations by Dr. Palmer prompted duplex study and then subsequent CTA confirming this 99% lesion of the proximal right ICA. Review of Systems Const: Denies: fever(s), chills, change in appetite, change in weight, fatigue or night sweats Eyes: Denies: change in vision or blurry vision ENMT: Denies: odynophagia or hoarseness Card: Denies: chest pain, palpitations, irregular heart rhythm or edema Resp: Reports: dyspnea (With exercise) and non-productive cough; Denies: productive cough GI: Denies: abdominal pain, nausea, vomiting, dysphagia, heartburn or change in bowel habits : Denies: difficulty urinating, dysuria, urinary frequency, urinary urgency or urinary hesitancy Musc: Denies: extremity pain or extremity swelling Skin/Breast: Denies: rash Neuro: Denies: headache(s), numbness in extremities, weakness in extremities, sensory changes or difficulty walking Psych: Denies: anxiety, depression or change in appetite Endo: Denies: polyuria, polydipsia or cold intolerance David/Lymph: Denies: easy bruising, easy bleeding, petechiae or enlarged lymph nodes Medications/Allergies Home Medications Medication Instructions Recorded Confirmed Last Taken Type aspirin 81 mg tablet,delayed 81 mg PO DAILY 12/21/19 05/08/20 05/04/20 History release isosorbide mononitrate 60 mg 60 mg PO DAILY 30 Days #30 tab 03/16/20 05/08/20 05/08/20 06:00 Rx tablet,extended release 24 hr budesonide-formoterol HFA 160 2 puff INHALATION BID 90 Days #3 04/03/20 05/08/20 Unknown Rx mcg-4.5 mcg/actuation aerosol each inhaler clopidogrel 75 mg tablet 75 mg PO DAILY #90 tab 04/03/20 05/08/20 05/03/20 Rx nitroglycerin 0.4 mg sublingual 0.4 mg SUBLINGUAL Q5M PRN #25 tab 04/03/20 05/08/20 04/23/20 Rx tablet olmesartan 40 mg tablet 40 mg PO DAILY #90 tab 04/03/20 05/08/20 05/08/20 Rx simvastatin 40 mg tablet 40 mg PO DAILY #90 tab 04/03/20 05/08/20 05/07/20 Rx hydrocodone-acetaminophen 1 tab PO Q6H PRN #14 tab 05/09/20 Unknown Rx carvedilol 25 mg PO BID 30 Days #60 tab 05/10/20 Unknown Rx Allergies Allergy/AdvReac Type Severity Reaction Status Date / Time No Known Allergies Allergy Verified 04/27/20 09:48 PFSH Acute PFSH: Medical History Atypical chest pain CAD (coronary artery disease) Carotid stenosis COPD (chronic obstructive pulmonary disease) Essential (primary) hypertension History of CVA (cerebrovascular accident) History of left inguinal hernia Neuropathic pain PVD (peripheral vascular disease) Surgical History History of cataract extraction Bilateral History of coronary artery bypass graft x 3 History of femoral angiogram left Family History Other Hypertension Denies family history of Bleeding disorder Social History Smoking and tobacco status: current every day smoker Second hand smoke exposure: Yes Smoking risk assessment/counseling performed?: Yes Alcohol intake: never Desire information about alcohol rehabilitation?: No Counseling given: No Desire information about substance/drug rehabilitation?: No Counseling given: No Adopted: No Caregiver/support person: No Lives independently: Yes Household members: friend(s) Housing: House Marital status: Single Number of children: 5 service: Yes branch: [employer] Current occupational status: retired History of recent travel: No Current gender identity: Male Vitals/I&O/Wt Last Vital Signs Temp 98.2 F 05/10/20 02:22 Pulse 79 05/10/20 05:12 Resp 16 05/10/20 05:12 BP 162/77 05/10/20 05:12 Pulse Ox 93 05/10/20 05:12 Weight last 48 hrs Weight 203 lb Physical Exam Const: COMMON NORMALS: patient oriented x3 and alert ORIENTATION/CONSCIOUSNESS: Yes oriented to person, Yes oriented to place and Yes oriented to time HENMT: COMMON NORMALS: normocephalic HEAD & SCALP: normocephalic Neck/C-Spine: COMMON NORMALS: full ROM, supple, no JVD and No carotid bruits GENERAL: Yes trachea midline CAROTIDS: Yes bruit positive right CERVICAL SPINE: Yes cervical ROM normal Chest: COMMONS NORMALS: normal inspection of the chest and normal palpation of entire chest wall Resp: COMMON NORMALS: normal respiratory effort, No use of accessory muscles, clear to auscultation bilaterally and percussion normal EFFORT & INSPECTION: Yes able to speak in complete sentences and Yes symmetric chest movement AUSCULTATION: clear to auscultation bilaterally PERCUSSION: percussion normal Cardio: COMMON NORMALS: no JVD, regular rate, regular rhythm, S1 normal heart sound present, S2 normal heart sound present, No gallops present (Cardio), No murmurs present (Cardio), No rub (Cardio) and Peripheral pulses 2+ throughout JUGULAR VENOUS DISTENTION: no JVD RATE: regular rate RHYTHM: regular rhythm HEART SOUNDS: S1 normal heart sound present and S2 normal heart sound present PERIPHERAL PULSES: Peripheral pulses 2+ throughout Neuro: COMMON NORMALS: patient oriented x3, no focal motor deficits and no sensory deficits noted SENSORIUM/ORIENTATION: Yes alert, Yes oriented to person, Yes oriented to place and Yes oriented to time GAIT: Yes Normal gait present Data : 05/10/20 02:30 05/10/20 02:30 A&P Assessment and plan (1) Carotid stenosis: High-grade right ICA stenosis. Carotid endarterectomy is recommended to reduce his statistical increased risk for spontaneous CVA related to this high-grade lesion. Details and risks of the procedure were carefully and frankly discussed. Risks reviewed include the possibility of , stroke, heart attack, major bleeding, infection, pneumonia, organ failure, failure to benefit, prolonged hospital stay, pain after the procedure, need for further procedures, temporary or permanent hoarseness, deviation of the tongue, swallowing difficulties, inability to complete the procedure, and possible need for long-term followup. All questions were answered. Appropriate consents have been provided for review and signature. Status: Acute Qualifiers: Laterality: right Qualified Code(s): I65.21 - Occlusion and stenosis of right carotid artery Attestations Medical Necessity Statement*: High-grade right internal carotid artery stenosis Time Spent in Patient Care: Greater than 35 minutes Coding Level of Care Code Acute Rapid Extractor Operator for [facility] Fwd Diagnoses Carotid stenosis I65.21 Laterality: right
== END 2020-05-10 05:29 | disposition home or self-care (01) ==
PROVIDERS: Emergency Provider Emergency Medicine; PCP Nurse Practitioner Family
DX: R07.9 Chest pain, unspecified (principal); I10 Essential (primary) hypertension; Z79.02 Long term (current) use of antithrombotics/antiplatelets; Z79.82 Long term (current) use of aspirin; I25.10 Atherosclerotic heart disease of native coronary artery without angina pectoris; J44.9 Chronic obstructive pulmonary disease, unspecified; Z86.73 Personal history of transient ischemic attack (TIA), and cerebral infarction without residual deficits; Z95.1 Presence of aortocoronary bypass graft; F17.210 Nicotine dependence, cigarettes, uncomplicated
CPT/HCPCS: 12345; 71045; 80053; 84484; 85025; 85610; 93005; 94640; 96374; 96375; 99283; 99284; J2270; J2405; J3490; J7611

== ENCOUNTER → 2020-05-11 14:31 | Outpatient (BNVA) | payer MEDICARE, SELFPAY | PROVIDERS: PCP Nurse Practitioner Family; Visit Provider Nurse Practitioner Family | DX: D72.829 Elevated white blood cell count, unspecified (principal); I10 Essential (primary) hypertension; R07.89 Other chest pain; Z98.890 Other specified postprocedural states | CPT/HCPCS: 85025 ==

== ENCOUNTER 2020-06-20 13:33 | Outpatient (CLI) | payer MEDICARE, SELFPAY ==
--- NOTE | 2020-06-20 13:30 | USCV_ITS ---
Cal Tolbert Age: 79 Gender: M : 1940 Exam Date: 06/20/2020 14:36 Ordering Phys: Mike Avalos MD (Andy) ([email or web address] [place] Technologist: Jasmin Burks [place] [facility] [place]: OCCLUSION Risk Factors: Previous Vascular Surgery: Right Brachial BP: / Left Brachial BP: / Right Left Velocity (cm/s) Spectral Plaque Velocity (cm/s) Spectral Plaque Syst/Diast Broadening Syst/Diast Broadening 67.10/ 17.30 Prox CCA 94.70 / 17.10 61.50/ 18.80 Mid CCA 130.10/ 27.60 61.80/ 13.40 Distal CCA 99.90 / 22.30 49.90/ 8.20 Prox ICA 252.90/ 34.20 90.50/ 29.00 Mid ICA 228.20/ 48.90 111.40/31.70 Distal ICA 172.10/ 41.80 52.90 ECA 159.10 1.66 ICA/CCA 1.94 Antegrade Vertebral Antegrade 61.00/ 16.90 cm/s 32.20/ 12.50 cm/s Tri Subclavian Tri 162.2 209.9 0 0 FINDINGS Moderate to heavy heterogeneous plaques at the left bifurcation and internal carotid artery Antegrade flow in the vertebral arteries bilaterally Mild to moderate plaques of the right bifurcation and ICA. Intimal thickening in the common carotid arteries bilaterally. CONCLUSIONS Moderate to heavy heterogeneous plaques at the left bifurcation and internal carotid artery with velocity elevation, suggestive of 50 to 69% stenosis. Mild to moderate plaques of the right bifurcation and ICA suggestive of less than 50% stenosis No significant stenosis in the subclavian arteries Compared to the study from 03/10/2020, there is significant improvement of the stenosis on the right side Dr Jono Palmer MD [facility] (Electronically Signed) Final Date: 20 June 2020 19:29 S
== END 2020-06-20 13:34 | disposition home or self-care (01) ==
PROVIDERS: PCP Nurse Practitioner Family; Visit Provider Thoracic Surgery (Cardiothoracic Vascular Surgery)
DX: I65.23 Occlusion and stenosis of bilateral carotid arteries (principal)
CPT/HCPCS: 93880